=== PATIENT | male | born 1990 | race Caucasian/White ===

== ENCOUNTER 2020-11-12 11:10 | Outpatient (RCR) | payer BC, SELFPAY ==
[2017-06-07 05:35] VITALS: BMI 25.8
== END 2021-01-18 23:59 ==
LOC: IMMUN 11:10
PROVIDERS: PCP Internal Medicine; Visit Provider Family Medicine
DX: Z23 Encounter for immunization (principal)
CPT/HCPCS: 0001A; 0002A; 91300